=== PATIENT | female | born 1970 | race Caucasian/White ===

== ENCOUNTER 2021-04-08 12:01 | Emergency (ER) | payer BC, SELFPAY ==
--- NOTE | 2021-04-08 12:09 | ED.URI ---
HPI - URI/Sore Throat General Chief Complaint: Upper Respiratory Infection Stated Complaint: Sore throat, Sinus, Joint Pain Source: patient and RN notes reviewed Mode of arrival: ambulatory History of Present Illness HPI Narrative: This is a 50-year-old female who presented to urgent care with complaints of a sore throat, sinus congestion, body aches and a nonproductive cough that developed approximately 1 week ago. She notes that her son tested positive for strep last week shortly after she developed symptoms. Patient did take DayQuil and NyQuil at home with little relief. The patient denies SOB, CP, palpitation, extremity numbness, lightheadedness, dizziness, constipation, diarrhea, chills, or fever. Strep neg 12 they will have another nurse follow-up with you in your office aicg-bie-bzgftqy cough personally mildly okay Related Data Home Medications Medication Instructions Recorded Confirmed levothyroxine [Levoxyl] 137 mcg PO DAILY 04/08/21 04/08/21 norethindrone (contraceptive) 0.35 mg PO DAILY 04/08/21 04/08/21 [Norlyda] Allergies Allergy/AdvReac Type Severity Reaction Status Date / Time No Known Allergies Allergy Unknown Verified 04/08/21 12:12 Review of Systems Review of Systems: Narrative: A 14 organ system Review of Systems was performed and pertinent positives included in the HPI, otherwise remaining ROS is negative. All systems reviewed & are unremarkable except as noted in HPI and below PMFSH Family History Family History (Updated 02/07/17 @ 14:57 by DOCTOR UNKNOWN) Mother Diabetes mellitus Family history of rheumatoid arthritis Father Hypertension Family history of skin conditions Social History Social History Smoking status: Never smoker Alcohol intake: never Exam Narrative: Exam Narrative: GENERAL: This is a well-nourished, well-developed patient, in no apparent distress. HEAD: normocephalic, atraumatic. EYES: PERRL. Sclera clear/white. Vision is grossly intact. EARS: External ears normal, auditory canals clear and without drainage, TMs normal without perforation. Hearing grossly intact. NOSE: External nose normal with no obvious nasal discharge, nares without redness, no rhinorrhea. THROAT: Mucous membranes moist, posterior pharynx edema erythematous. NECK: Neck supple, non-tender without lymphadenopathy, masses or thyromegaly. CARDIOVASCULAR: Regular rate and rhythm without murmurs, gallops, or rubs. RESPIRATORY: Clear to auscultation. Breath sounds equal bilaterally. No wheezes, rales, or rhonchi. GASTROINTESTINAL: Abdomen soft, non-tender, nondistended. Bowel sounds are active. No hepato-splenomegaly, or palpable masses. No guarding. SKIN: warm, intact with no suspicious lesions or rash, good texture and turgor. NEURO: awake, alert, and oriented to person, place and time. There were no obvious focal neurologic abnormalities. Steady gait EXTREMITIES: Normal range of motion. No edema. No calf tenderness. Negative Homans sign bilaterally. BACK: Nontender without deformity or crepitance. No flank tenderness. Course Course Emergency Course: Patient will discharge home with amoxicillin x7 days such as she is seeing treated for antibiotics for cough positive which Tammy Augustin given antibiotics saline as needed culture Vital Signs Vital signs: Vital Signs Temperature 99.8 F H 04/08/21 12:10 Pulse Rate 88 04/08/21 12:10 Respiratory Rate 16 04/08/21 12:10 Blood Pressure 141/93 H 04/08/21 12:10 Pulse Oximetry 100 04/08/21 12:10 Temperature 99.8 F H 04/08/21 12:10 Pulse Rate 88 04/08/21 12:10 Respiratory Rate 16 04/08/21 12:10 Blood Pressure 141/93 H 04/08/21 12:10 Pulse Oximetry 100 04/08/21 12:10 MDM - URI/Sore Throat Differential Diagnosis Differential diagnosis: Likely upper respiratory infection, sinusitis, bronchitis and pharyngitis Discharge Plan Discharge Clinical Impression: Pharyngitis Qualifiers: Pharyngitis/tonsillitis e
[2021-04-08 12:10] VITALS: BP 141/93; PULSE 88; RESP 16; TEMP 37.7; O2SAT 100
== END 2021-04-08 12:46 | disposition home or self-care (01) ==
PROVIDERS: Emergency Provider Nurse Practitioner; PCP Emergency Medicine
DX: J02.9 Acute pharyngitis, unspecified (principal); I25.2 Old myocardial infarction; E89.0 Postprocedural hypothyroidism; Z85.850 Personal history of malignant neoplasm of thyroid
CPT/HCPCS: 87880; 99213; G0463

== ENCOUNTER 2022-09-19 08:02 | Outpatient (CLI) | payer OTHER, SELFPAY | END 2022-09-19 08:03 | disposition home or self-care (01) | LOC: ANHSURGERY 08:07 | PROVIDERS: PCP Family Medicine; Visit Provider Obstetrics & Gynecology | DX: N83.209 Unspecified ovarian cyst, unspecified side (principal) | CPT/HCPCS: 36415; 86850; 86900; 86901 ==

== ENCOUNTER 2022-09-25 01:16 | Day surgery (SDC) | payer OTHER, SELFPAY ==
[2022-09-12 14:53] VITALS: BMI 26.6
--- NOTE | 2022-09-12 15:05 | PC.NURSE ---
Report to the Outpatient Waiting Room, entrance under the green pavilion located off [facility], at time 6:30 on date 09/25/22. Planned Procedure Time: 8:30. Time changes happen often and if your time is changed the preop area will call you the afternoon before. - You and your visitor will be asked to self-screen and do not enter if you have any COVID symptoms. - Only one visitor is requested with a max of two and NO children visitors are allowed at this time. - The patient visitor may be requested to leave or wait in car when not with patient due to distancing restrictions. - A mask is REQUIRED within the hospital. Patients may have clear liquids (water, carbonated beverages, clear teas, apple juice) until 3 hours prior to surgery (5:30) with a maximum of 20 ounces. - No food from midnight until time of surgery Take the following medications with a SIP of water the morning of surgery: NONE Medications to discontinue per physician: VITAMINS/SUPPLEMENTS Date to take last dose: 09/21/21 Please no make-up, nail irish, hairspray, perfume, deodorant, or body powder the day of surgery. No jewelry (including any body piercings) or valuables the day of surgery, leave them at home. Please take a shower or bath the night before, or the morning of, surgery with an antibacterial soap. Wear comfortable, loose fitting clothing. - Jewelry must be removed prior to entering the operating room. Rings and piercings that are not removed may be cut off. - The hospital will not accept responsibility for valuables. - Please leave all valuables, including medications, at home the day of surgery. If you are going home after surgery, a licensed automobile drivers must drive you home. - NO public transportation without another adult if you receive anesthesia. - We recommend that an adult stay with you for 24 hours following discharge. - We also recommend that you do not drive, make important decision, drink alcoholic beverages, or take any drugs that were not prescribed by your health care provider for at least 24 hours after your discharge time. Follow any additional instructions given to you from your surgeon. If you or anyone in your household have experienced Covid symptoms in the past week, please notify your surgeon or the nurse liaison at the phone number below for possible testing. Telephone instructions given to PT - BECCA KHOURY and asked if any additional questions and then verbalized understanding. Patient advised to call surgeon office or pre surgery nurse liaison [phone] if any additional questions.
[2022-09-25] VITALS (17 sets, daily range): BP systolic 119–153; BP diastolic 80–101; PULSE 68–87; RESP 12–20; TEMP 36.1–36.7; O2SAT 92–100
[2022-09-25] MEDS: LACTATED RINGERS 1,000 ML 30 ML IV CONT ×3 (07:29→13:22)
--- NOTE | 2022-09-25 08:02 | WPDANESEPPF ---
Anes - Initial Pre Proc Eval Procedure: Operation Date: 09/25/22 08:30 Proposed Procedures p Robotic Assisted Right Ovarian Cystectomy, Robotic Assisted Myomectomy - Dalia Schneider MD Date/Time: 09/25/22 08:02 Surgeon: Dlaia Schneider MD Pre Op Diagnosis: cyst on right ovary, uterine leiomyoma Patient Data Age: 51 Gender: F Height: 1.73 m Weight: 80.75 kg Last Vital Signs Temp 98.1 F 09/25/22 06:37 Pulse 84 09/25/22 06:37 Resp 20 09/25/22 06:37 BP 142/101 H 09/25/22 06:37 Pulse Ox 98 09/25/22 06:37 O2 Del Method Room Air 09/25/22 06:37 Allergies Allergy/AdvReac Type Severity Reaction Status Date / Time No Known Allergies Allergy Verified 09/13/22 08:31 Home Medications Medication Instructions Recorded Confirmed Type norethindrone (contraceptive) 0.35 0.35 mg PO DAILY 04/08/21 09/25/22 History mg tablet (Norlyda) ascorbic acid (vitamin C) 500 mg 500 mg PO DAILY 09/12/22 09/12/22 History tablet (Vitamin C) calcium carbonate 600 mg-vitamin 2 tablet PO BID 09/12/22 09/25/22 History D3 5 mcg (200 unit) tablet levothyroxine 137 mcg tablet 137 mcg PO HS 09/12/22 09/12/22 History (Levoxyl) multivitamin 1 tablet PO DAILY 09/12/22 09/12/22 History naproxen sodium 220 mg tablet 220 mg PO BID PRN Pain 09/12/22 09/12/22 History omega 6-nih-pcp-fish oil 1,000 mg 1 cap PO DAILY 09/12/22 09/12/22 History (120 mg-180 mg) capsule (Fish Oil) Patient hx anesthesia problems: none Family hx anesthesia problems: none Results Review: All pre-operative results and documents have been reviewed as part of the pre-operative evaluation. [facility] Family History Family History (System 09/13/22 @ 08:31 by Korina Martinez) Mother Diabetes mellitus Family history of rheumatoid arthritis Father Hypertension Family history of skin conditions Social History Social History (System 09/13/22 @ 08:31 by Korina L. Martinez) Smoking status: Never smoker Alcohol intake: never Substance use: never Substance use type: does not use Living arrangements: with family Gender identity (if verbalized by the patient): Female Spiritual care concerns: No Anes - Eval Final PreProcedure Day of Procedure 09/25/22 08:02 Patient weight: normal Heart: regular rate and rhythm Lungs: clear to auscultation Airway: Mallampati scale class II Neurological: alert and oriented Last oral intake: >/= 8 hours ASA classification: II Emergent: no Anesthetic plan: proceed Anesthesia type and monitoring: general ETT and standard monitoring Results Review: All pre-operative results and documents have been reviewed as part of the pre-operative evaluation. Informed Consent: The patient's anesthetic plan and its attendant risks and benefits were discussed with the patient/family/POA. Questions were solicited and answers provided to the satisfaction of the patient/family/POA.
[2022-09-25] MEDS: KETOROLAC 15 MG/ML VIAL (*BKC) IV PUSH (08:08)
[2022-09-25] MEDS: ACETAMINOPHEN 500 MG TABLET 1000 MG PO (08:08)
--- NOTE | 2022-09-25 08:42 | SUR.PREOP ---
patient updated on time delay
--- NOTE | 2022-09-25 08:55 | WPDHPUPDATE1 ---
History and Physical Update Update Date/Time: 09/25/22 08:55 History and Physical has been reviewed, including an updated exam of the patient. There are NO changes in the patient's condition. Risks, benefits, and alternatives have been discussed and questions answered. Patient agrees to proceed with procedure.
--- NOTE | 2022-09-25 11:34 | W.PM.PROC2 ---
Procedure Note - Detailed Date of Procedure 09/25/22 Pre-op Diagnosis cyst on right ovary, uterine leiomyoma Post-op Diagnosis Same ( hemoperitoneum) Procedure Performed robotic bilateral salpingectomy, myomectomy, ovarian cystectomy Surgeon Dalia Schneider MD Anesthesia General Indications Pelvic pain, uterine fibroids Findings 4 cm pedunculated anterior uterine fibroids, there were multiple fibroids throughout the uterus. Right ovarian cyst -small. Hemoperitoneum. Description of Procedure This patient was taken to the operating room.? She was prepped and draped in the dorsal lithotomy position after induction of general anesthesia.? A 8 mm skin incision was made in the left upper quadrant the abdomen. a 5 mm Visiport trocar was inserted into abdominal cavity and pneumoperitoneum was achieved.? A 8 mm supraumbilical incision was made and a 8 mm trocar was inserted into the intrauterine cavity under direct visualization of the scope. an 8 mm incision was made in the right upper quadrant of the abdomen and an 8 mm robotic trocar was placed the inter uterine cavity under direct visualization the scope.? An 12 mm trocar was inserted in the left upper quadrant of the abdomen rectal is a cystoscope after an incision was made there as well.? The robot was docked.? Electronic? Orientation of the robot was performed. Myomectomy was performed. There was a 4 cm pedunculated fibroid on the anterior surface of the uterus. She has replaced around the stalk. Koyfdh-kd-bkxht sutures were performed around the stalk, 1 on the stalk, 1 in the adjacent surface tissue of the uterus. The fibroid was then excised with unipolar cautery. After was removed. It was cut into approximately 6 pieces. These pieces were placed into 2 endobags. They were taken out the left lower quadrant trocar site where the AirSeal was placed. AirSeal trocar was removed and then replaced after removal of the fibroids. Bilateral salpingectomy was performed. Tubes were resected by cutting across the mesosalpinx between the tube and the ovarian tissue in the broad ligament. This was done in a stepwise fashion from laterally to medially. The cornual area the tube was thoroughly cauterized and sealed up. The tube was then removed and taken out through the larger trocar site. Ovarian cystectomy was performed. Right ovarian cyst was removed. It was taken and small pieces. The cut surfaces were cauterized. The left ovary had a small cyst that was punctured and drained. the trocars were removed after the robot was undocked.? The skin was closed with subacute or Dermabond.? The patient was taken to recovery room.? She was stable condition.? Sponge lap and needle counts were correct x2.? Estimated Blood Loss 20 Pathology Yes Complications No immediate complications Condition Stable Disposition Same day
--- NOTE | 2022-09-25 12:18 | SUR.PHASEI ---
RN spoke w/ Dr. Schneider via telephone and he stated, Patient can go home today.
[2022-09-25] MEDS: fentaNYL CITRATE INJ (*CRX) 100 MCG/2 ML VIAL 25 MCG IV PUSH ×6 (12:29→13:14)
[2022-09-25 13:22] LABS: Glucose Point of Care 174 mg/dl (65-105)
[2022-09-25] MEDS: ONDANSETRON INJ 4 MG/2 ML VIAL IV PUSH (13:22)
[2022-09-25] MEDS: diphenhydrAMINE HCl INJ 50 MG/ML VIAL 25 MG IV PUSH (14:14)
[2022-09-25] MEDS: SCOPOLAMINE 1.5 MG PATCH TRANSDERM (14:15)
== END 2022-09-25 16:03 | disposition home or self-care (01) ==
PROVIDERS: PCP Family Medicine; Visit Provider Obstetrics & Gynecology
PROC: (CPT 58661; principal; 2022-09-25 08:30)
DX: N83.201 Unspecified ovarian cyst, right side (principal); D25.9 Leiomyoma of uterus, unspecified; N83.8 Other noninflammatory disorders of ovary, fallopian tube and broad ligament
CPT/HCPCS: 58661; 58662; 58545; S2900; 82948; 88302; 88305; A9270; J1100; J1170; J1200; J1885; J2250; J2405; J2704; J2710; J3010; J7030; J7120

== ENCOUNTER → 2023-01-04 16:26 | Outpatient (CLI) | payer OTHER, SELFPAY ==
--- NOTE | ~2023-01-04 | MM_ITS ---
EXAMINATION: MM screening josefa BI w santosh HISTORY: Screening mammogram TECHNIQUE: Craniocaudal and mediolateral oblique 3-D tomosynthesis images were obtained and synthetic 2-D images were generated. CAD analysis was submitted and interpreted. COMPARISON: No prior mammogram is available for comparison at this institution. BREAST PARENCHYMAL COMPOSITION: There are scattered areas of fibroglandular density. FINDINGS: There is no evidence of suspicious mass, calcification, or architectural distortion to sugg est malignancy in either breast. There has been no suspicious interval change. IMPRESSION: 1. No mammographic evidence of malignancy. 2. Recommend routine screening mammography in one year. BI-RADS Category 1: Negative Reviewed, dictated and finalized at location L.
== END ==
PROVIDERS: PCP Obstetrics & Gynecology; Visit Provider Obstetrics & Gynecology
DX: Z12.31 Encounter for screening mammogram for malignant neoplasm of breast (principal)
CPT/HCPCS: 77063; 77067

== ENCOUNTER 2024-02-26 15:55 | Outpatient (CLI) | payer OTHER, SELFPAY ==
--- NOTE | ~2024-02-26 | MM_ITS ---
EXAMINATION: MM screening josefa BI w santosh HISTORY: Screening TECHNIQUE: Craniocaudal and mediolateral oblique 3-D tomosynthesis images were obtained and synthetic 2-D images were generated. CAD analysis was submitted and interpreted. COMPARISON: 01/04/2023 BREAST PARENCHYMAL COMPOSITION: Not dense: There are scattered areas of fibroglandular density. FINDINGS: There is no evidence of suspicious mass, calcification, or architectural distortion to sugg est malignancy in either breast. There has been no suspicious interval change. IMPRESSION: 1. No mammographic evidence of malignancy. 2. Recommend routine screening mammography in one year. BI-RADS Category 1: Negative Reviewed, dictated and finalized at location B.
== END 2024-02-26 15:56 ==
PROVIDERS: PCP Obstetrics & Gynecology; Visit Provider Obstetrics & Gynecology
DX: Z12.31 Encounter for screening mammogram for malignant neoplasm of breast (principal)
CPT/HCPCS: 77063; 77067

== ENCOUNTER 2024-08-11 15:37 | Outpatient (CLI) | payer OTHER, SELFPAY ==
--- NOTE | ~2024-08-11 | MR_ITS ---
EXAMINATION: MR lumbar spine wo con DATE: 08/11/2024 16:31 INDICATION: Closed wedge compression fracture. Low back pain. TECHNIQUE: Magnetic resonance imaging (MRI) of the lumbar spine was performed without intravenous con trast. Sequences included sagittal T2-weighted FSE, sagittal T2-weighted FS FSE, sagittal T1-weighted FSE, and axial T2-weighted FSE. COMPARISON: None FINDINGS: There is 7 degrees levocurvature of lumbar spine. There is a chronic compression fracture w ith 3/5 loss of height. There are hemangiomas in T12 and L1 vertebral bodies. There is mildly decreas ed disc height at L1-L2, moderately decreased disc height at L3-L4, and severely decreased disc heigh t at L4-L5. The distal spinal cord signal intensity is normal. The conus medullaris is at L1. The fol lowing disc levels are specifically discussed: L1-L2: The disc is bulging. There is mild bilateral facet joint osteoarthritis. There is mild right n eural foraminal stenosis. There is mild central canal stenosis. L2-L3: The disc is bulging. There is mild bilateral facet joint osteoarthritis. There is mild left ne ural foraminal stenosis. There is mild central canal stenosis. L3-L4: The disc is bulging and has an annular fissure. There is mild bilateral facet joint osteoarthr itis. There is mild bilateral neural foraminal stenosis. There is mild central canal stenosis. L4-L5: The disc is bulging and has an annular fissure. There is mild bilateral facet joint osteoarthr itis. There is mild bilateral neural foraminal stenosis. There is mild central canal stenosis. L5-S1: The disc does not extend beyond the endplate margin. There is moderate bilateral facet joint o steoarthritis. There is no neural foraminal stenosis. There is no central canal stenosis. IMPRESSION: 1. Severe lumbar spondylosis. 2. Chronic L2 compression fracture. Reviewed, dictated and finalized at location A. [place] [employer] ANALYST
== END 2024-08-11 15:38 | disposition home or self-care (01) ==
PROVIDERS: Visit Provider Family Medicine
DX: S32.020K Wedge compression fracture of second lumbar vertebra, subsequent encounter for fracture with nonunion (principal); M43.06 Spondylolysis, lumbar region; X58.XXXD Exposure to other specified factors, subsequent encounter
CPT/HCPCS: 72148

== ENCOUNTER 2025-05-27 07:51 | Outpatient (CLI) | payer OTHER, SELFPAY ==
--- NOTE | ~2025-05-27 | MM_ITS ---
EXAMINATION: MM screening josefa BI w santosh HISTORY: Screening TECHNIQUE: Craniocaudal and mediolateral oblique 3-D tomosynthesis images were obtained and synthetic 2-D images were generated. CAD analysis was submitted and interpreted. COMPARISON: Comparison to multiple prior studies sequentially, with oldest reviewed study dated , 01/04/2023 BREAST PARENCHYMAL COMPOSITION: There are scattered areas of fibroglandular density. FINDINGS: There is no evidence of suspicious mass, calcification, or architectural distortion to suggest malignancy in either breast. IMPRESSION: 1. No mammographic evidence of malignancy. 2. Recommend routine screening mammography in one year. BI-RADS Category 1: Negative Reviewed, dictated and finalized at location B.
== END 2025-05-27 07:52 | disposition home or self-care (01) ==
LOC: MICIMG 07:52
PROVIDERS: PCP Obstetrics & Gynecology; Visit Provider Obstetrics & Gynecology
DX: Z12.31 Encounter for screening mammogram for malignant neoplasm of breast (principal)
CPT/HCPCS: 77063; 77067